=== PATIENT | female | born 1980 | race Two or more races ===

== ENCOUNTER 2019-05-21 20:28 | Emergency (ER) | payer SELFPAY ==
--- NOTE | 2019-05-21 21:01 | EDM.PDOC ---
ED HPI GENERAL MEDICAL PROBLEM - General Chief Complaint: Abdominal Pain Stated Complaint: ABDOMINAL PAIN Time Seen by Provider: 05/21/19 20:52 Source of Information: Reports: Patient History Limitations: Reports: No Limitations - History of Present Illness INITIAL COMMENTS - FREE TEXT/NARRATIVE: 39-year-old female with onset of vaginal discharge 3 weeks ago that has been fairly consistent. She also had some burning with urination at that time. The burning with urination has worsened with time and she has developed pain with urination as well. She also has pain along her left flank and left back and left lower abdomen that has developed over the past week. She rates the pain as a 5-6/10 at rest and is somewhat sharp and throbbing. The pain is a 10/10 when she urinates. She has had some nausea but no vomiting. She reports that she has had no sexual intercourse for at least 2 months. She has been eating and drinking normally. The pain is worse with palpation and with movement. She has noticed no blood in her urine. Her bowel movements have been normal. There are no other associated signs or symptoms. There are no other modifying factors. Onset: Other (3 weeks ago) Duration: Getting Worse Location: Reports: Abdomen, Pelvis Quality: Reports: Sharp, Stabbing, Throbbing Severity: Moderate (to an ear) Improves with: Reports: Rest Worsens with: Reports: Other (Palpation. Urination) Context: Reports: Other (As above. No inciting event.) Associated Symptoms: Reports: Nausea/Vomiting Treatments INFORMATION CONSULTANT: Reports: Other (see below) (Nothing) lower abd Pain Score (Numeric/FACES): 5 - Related Data Allergies Allergy/AdvReac Type Severity Reaction Status Date / Time No Known Allergies Allergy Verified 09/25/18 22:19 Home Meds: Home Meds SUMAtriptan Succinate [Imitrex] 100 mg PO ASDIRECTED PRN 05/21/19 [History] Sulfamethoxazole/Trimethoprim [Bactrim Ds Tablet] 1 each PO BID 10 Days #20 tablet 05/21/19 [Rx] Past Medical History Musculoskeletal History: Reports: Back Pain, Chronic, Other (See Below) Other Musculoskeletal History: Degenerative Disc Disease, fx L thumb-2012 Neurological History: Reports: Migraines Psychiatric History: Reports: Bipolar, PTSD - Infectious Disease History Infectious Disease History: Reports: Chicken Pox - Past Surgical History HEENT Surgical History: Reports: Oral Surgery, Tonsillectomy Female Surgical History: Reports: Tubal Ligation Social & Family History - Tobacco Use Smoking Status *Q: Current Every Day Smoker - Caffeine Use Caffeine Use: Reports: None - Alcohol Use Alcohol Use History: No - Recreational Drug Use Recreational Drug Use: Yes Drug Use in Last 12 Months: Yes Recreational Drug Type: Reports: Marijuana/Hashish - Sexual History Other Sexual History Comment: Not really sexually active. Last sexual intercourse was 2 months ago. 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 ED ROS GENERAL - Review of Systems Review Of Systems: See Below Constitutional: Reports: No Symptoms HEENT: Reports: No Symptoms Respiratory: Reports: No Symptoms Cardiovascular: Reports: No Symptoms Endocrine: Reports: No Symptoms GI/Abdominal: Reports: Abdominal Pain (Left flank and lower abdominal pain) : Reports: Discharge, Dysuria, Flank Pain, Pain (With urination). Denies: Hematuria Musculoskeletal: Reports: Back Pain (Left mid back pain) Skin: Reports: No Symptoms Neurological: Reports: No Symptoms Hematologic/Lymphatic: Reports: No Symptoms ED EXAM, GI/ABD - Physical Exam Exam: See Below Exam Limited By: No Limitations General Appearance: Alert, WD/WN, Mild Distress Eyes: Bilateral: Normal Appearance, EOMI Ears: Normal External Exam Nose: Normal Inspection, Normal Mucosa, No Blood Throat/Mouth: Normal Inspection, Normal Oropharynx, Normal Voice, No Airway Compromise Head: Atraumatic, Normocephalic Neck: Normal Inspection, Supple, Non-Tender, Full Range of Motion Respiratory/Chest: No Respiratory Distress, Lungs Clear, Normal Breath Sounds, No Accessory Muscle Use, Chest Non-Tender Cardiovascular: Normal Peripheral Pulses, Regular Rate, Rhythm, No JVD GI/Abdominal Exam: Normal Bowel Sounds, Soft, No Mass, Tender (Tender over left flank and left lower quadrant. No rebound. No masses.) Back Exam: Normal Inspection, CVA Tenderness (L) (Mild) Extremities: Normal Inspection, Normal Range of Motion, Non-Tender, Normal Capillary Refill, No Pedal Edema Neurological: Alert, Oriented, CN II-XII Intact, Normal Cognition, No Motor/ Sensory Deficits Skin Exam: Warm, Dry, Intact, Normal Color, No Rash Course - Vital Signs Last Recorded V/S: Last Vital Signs Temp 36.8 C 05/21/19 20:28 Pulse 102 H 05/21/19 20:28 Resp 18 05/21/19 20:28 BP 104/76 05/21/19 20:28 Pulse Ox 98 05/21/19 20:28 - Orders/Labs/Meds Orders: Active Orders 24 hr Category Date Time Status Abdomen Pelvis wo Cont [CT] Stat Exams 05/21/19 21:51 Taken CHLAMYDIA/GC AMPLIFICATION Urgent Lab 05/21/19 21:05 Received CULTURE URINE [RM] Stat Lab 05/21/19 20:54 Received Labs: Laboratory Tests 05/21/19 05/21/19 05/21/19 Range/Units 20:54 20:54 21:10 WBC 10.8 (4.5-12.0) X10-3/uL RBC 4.78 (3.23-5.20) x10(6)uL Hgb 14.5 (11.5-15.5) g/dL Hct 43.7 (30.0-51.3) % MCV 91.3 (80-96) fL MCH 30.4 (27.7-33.6) pg MCHC 33.3 (32.2-35.4) g/dL RDW 13.3 (11.5-15.5) % Plt Count 263 (125-369) X10(3)uL MPV 9.1 (7.4-10.4) fL Neut % (Auto) 69.8 (46-82) % Lymph % (Auto) 19.2 (13-37) % [place] % (Auto) 5.3 (4-12) % Eos % (Auto) 4 (1.0-5.0) % Baso % (Auto) 2 (0-2) % Neut # (Auto) 7.5 (1.6-8.3) # Lymph # (Auto) 2.1 (0.6-5.0) # [place] # (Auto) 0.6 (0.0-1.3) # Eos # (Auto) 0.4 (0.0-0.8) # Baso # (Auto) 0.2 (0.0-0.2) # Sodium (135-145) mmol/L Potassium (3.5-5.3) mmol/L Chloride (100-110) mmol/L Carbon Dioxide (21-32) mmol/L BUN (7-18) mg/dL Creatinine (0.55-1.02) mg/dL Est Cr Clr Drug Dosing mL/min Estimated GFR (MDRD) (>60) BUN/Creatinine Ratio (9-20) Glucose (80-116) mg/dL Calcium (8.6-10.2) mg/dL Total Bilirubin (0.1-1.3) mg/dL AST (5-25) IU/L ALT (12-36) U/L Alkaline Phosphatase (56-112) IU/L C-Reactive Protein (0.5-0.9) mg/dL Total Protein (6.0-8.0) g/dL Albumin (3.5-5.2) g/dL Globulin g/dL Albumin/Globulin Ratio Amylase (25-115) U/L Urine Color Yellow (YELLOW) Urine Appearance Cloudy (CLEAR) Urine pH 6.0 (5.0-6.5) Ur Specific [place] 1.020 (1.010-1.025) Urine Protein Negative (NEGATIVE) mg/dL Urine Glucose (UA) Normal (NORMAL) mg/dL Urine Ketones Negative (NEGATIVE) mg/dL Urine Occult Blood Negative (NEGATIVE) Urine Nitrite Negative (NEGATIVE) Urine Bilirubin Negative (NEGATIVE) Urine Urobilinogen 1 H (NEGATIVE) mg/dL Ur Leukocyte Esterase Large H (NEGATIVE) Urine RBC 0-5 (0-5) Urine WBC 10-20 H (0-5) Ur Squamous Epith Cells Few H (NS,R,O) Amorphous Sediment Moderate Urine Bacteria Moderate H (NS) Urine HCG, Qual Negative (NEGATIVE) 05/21/19 05/21/19 Range/Units 21:10 21:10 WBC (4.5-12.0) X10-3/uL RBC (3.23-5.20) x10(6)uL Hgb (11.5-15.5) g/dL Hct (30.0-51.3) % MCV (80-96) fL MCH (27.7-33.6) pg MCHC (32.2-35.4) g/dL RDW (11.5-15.5) % Plt Count (125-369) X10(3)uL MPV (7.4-10.4) fL Neut % (Auto) (46-82) % Lymph % (Auto) (13-37) % [place] % (Auto) (4-12) % Eos % (Auto) (1.0-5.0) % Baso % (Auto) (0-2) % Neut # (Auto) (1.6-8.3) # Lymph # (Auto) (0.6-5.0) # [place] # (Auto) (0.0-1.3) # Eos # (Auto) (0.0-0.8) # Baso # (Auto) (0.0-0.2) # Sodium 141 (135-145) mmol/L Potassium 4.0 (3.5-5.3) mmol/L Chloride 106 (100-110) mmol/L Carbon Dioxide 26 (21-32) mmol/L BUN 18 (7-18) mg/dL Creatinine 1.0 (0.55-1.02) mg/dL Est Cr Clr Drug Dosing 55.87 mL/min Estimated GFR (MDRD) > 60 (>60) BUN/Creatinine Ratio 18.0 (9-20) Glucose 83 (80-116) mg/dL Calcium 9.5 (8.6-10.2) mg/dL Total Bilirubin 0.4 (0.1-1.3) mg/dL AST 21 D (5-25) IU/L ALT 34 D (12-36) U/L Alkaline Phosphatase 120 H (56-112) IU/L C-Reactive Protein 0.4 L (0.5-0.9) mg/dL Total Protein 7.5 (6.0-8.0) g/dL Albumin 3.6 (3.5-5.2) g/dL Globulin 3.9 g/dL Albumin/Globulin Ratio 0.9 Amylase 83 (25-115) U/L Urine Color (YELLOW) Urine Appearance (CLEAR) Urine pH (5.0-6.5) Ur Specific [place] (1.010-1.025) Urine Protein (NEGATIVE) mg/dL Urine Glucose (UA) (NORMAL) mg/dL Urine Ketones (NEGATIVE) mg/dL Urine Occult Blood (NEGATIVE) Urine Nitrite (NEGATIVE) Urine Bilirubin (NEGATIVE) Urine Urobilinogen (NEGATIVE) mg/dL Ur Leukocyte Esterase (NEGATIVE) Urine RBC (0-5) Urine WBC (0-5) Ur Squamous Epith Cells (NS,R,O) Amorphous Sediment Urine Bacteria (NS) Urine HCG, Qual (NEGATIVE) Meds: Medications Discontinued Medications Generic Name Dose Route Start Last Admin Trade Name Onel PRN Reason Stop Dose Admin Azithromycin 1,000 mg 05/21/19 22:57 05/21/19 23:08 Zithromax PO 05/21/19 22:58 1,000 mg ONETIME ONE Administration Ceftriaxone Sodium 1 gm 05/21/19 22:57 05/21/19 23:08 Rocephin IM 05/21/19 22:58 1 gm ONETIME ONE Administration Metronidazole 2,000 mg 05/21/19 22:57 05/21/19 23:08 Metronidazole PO 05/21/19 22:58 2,000 mg NOW ONE Administration Ondansetron HCl 4 mg 05/21/19 22:57 05/21/19 23:08 Zofran Odt PO 05/21/19 22:58 4 mg ONETIME ONE Administration - Radiology Interpretation Free Text/Narrative:: CT scan of the abdomen and pelvis showed no acute or specific finding per the radiologist. She did have severe degenerative disks spondylolysis at L5-S1. - Re-Assessments/Exams Free Text/Narrative Re-Assessment/Exam: 05/21/19 22:59: Patient has remained vitally stable. The CT scan of her abdomen and pelvis showed no acute abnormality. Her wet prep was positive for Trichomonas and her urine did appear to have evidence of infection. She was sexually active 2 months ago and has had the symptoms for quite some time. I will treat the patient for STDs including Trichomonas. I will also place the patient on antibiotics for an urinary tract infection. She is to drink plenty of fluids. She should take Tylenol and ibuprofen as needed for pain. She will need to follow-up with her primary doctor Departure - Departure Time of Disposition: 23:10 Disposition: Home, Self-Care 01 Condition: Good Clinical Impression: Trichomonas vaginitis, STD (female), Left flank pain UTI (urinary tract infection) Qualifiers: Urinary tract infection type: site unspecified Hematuria presence: without hematuria Qualified Code(s): N39.0 - Urinary tract infection, site not specified - Discharge Information Prescriptions: Sulfamethoxazole/Trimethoprim [Bactrim Ds Tablet] 1 each PO BID 10 Days #20 tablet Instructions: Urinary Tract Infection, Adult, [id number], Flank Pain, Adult Referrals: PCP,None [Primary Care Provider] - Forms: ED Department Discharge, ED Return to Work/School Form Additional Instructions: You have a vaginal Trichomonas infection. He may also have other sexually transmitted diseases and you were treated for both the Trichomonas and for those other sexually transmitted diseases. You also appear to have a urinary tract infection and I am placing you on an antibiotic to cover this. (Bactrim DS ). The CT scan of your abdomen and pelvis showed no evidence of kidney stones or any other pathology. You should increase your fluid intake. Any sexual partners should be checked and treated. Follow-up with your primary doctor as needed. Back to the emergency department for high fever, unrelenting vomiting, abdominal pain or any other concerning sign or symptom. - My Orders Last 24 Hours: My Active Orders 05/21/19 20:54 CULTURE URINE [RM] Stat 05/21/19 21:05 CHLAMYDIA/GC AMPLIFICATION Urgent 05/21/19 21:51 Abdomen Pelvis wo Cont [CT] Stat - Assessment/Plan Last 24 Hours: My Active Orders 05/21/19 20:54 CULTURE URINE [RM] Stat 05/21/19 21:05 CHLAMYDIA/GC AMPLIFICATION Urgent 05/21/19 21:51 Abdomen Pelvis wo Cont [CT] Stat
[2019-05-21] MEDS ORDERED: cefTRIAXone 1 GM Vial IM ONE (22:57)
[2019-05-21] MEDS ORDERED: Ondansetron 4 MG Tab.DIS PO ONE (22:57)
[2019-05-21] MEDS ORDERED: Azithromycin 250 MG Tab PO ONE (22:57)
[2019-05-21] MEDS ORDERED: metroNIDAZOLE 250 MG Tab PO ONE (22:57)
[2019-05-25 02:07] LABS: CHLAMYDIA TRACHOMATIS, NAA Positive (Negative); NEISSERIA GONORRHOEAE, NAA Negative (Negative)
--- NOTE | 2019-05-31 08:39 | LETTER ---
May 28, 2019 Seema Navarro [address] [place] [id number] Dear Ms. Navarro: This letter is written to inform you that the test for Chlamydia came back positive. You were treated with medication for the Chlamydia at the time you were seen in the emergency department. You should need no further treatment for this. As we discussed, you should have any sexual partner checked and treated and you should inform your sexual partner that you had Chlamydia. You should follow up with your primary doctor as I recommended. I hope this letter finds you well. Respectfully yours,
== END 2019-05-21 23:21 | disposition home or self-care (01) ==
LOC: FB.ED 20:28 → MERGE 20:28 → FB.ED 23:21
DX: A59.01 Trichomonal vulvovaginitis (principal); N39.0 Urinary tract infection, site not specified; F17.200 Nicotine dependence, unspecified, uncomplicated; Z98.890 Other specified postprocedural states; Z98.51 Tubal ligation status
CPT/HCPCS: 36415; 74176; 80053; 81001; 81025; 82150; 85025; 86140; 87086; 87210; 87491; 87591; 96372; 99284; A9270; J0696

== ENCOUNTER 2019-11-14 02:48 | Emergency (ER) | payer SELFPAY ==
[2019-11-14] MEDS ORDERED: Ketorolac 60 MG/2 ML SDV IM ONE (02:59)
[2019-11-14] MEDS ORDERED: Acetaminophen 500 MG Tab PO ONE (02:59)
[2019-11-14] MEDS ORDERED: SUMAtriptan 6 MG/0.5 ML SDV SUBCUT ONE (03:30)
--- NOTE | 2019-11-14 03:44 | EDM.PDOC ---
ED HPI GENERAL MEDICAL PROBLEM - General Stated Complaint: ALTERED MENTAL STATUS Time Seen by Provider: 11/14/19 03:00 Source of Information: Reports: Patient History Limitations: Reports: No Limitations - History of Present Illness INITIAL COMMENTS - FREE TEXT/NARRATIVE: Patient presented to the ED because of headache over the bi frontal area05/18 with associated N/V and photophobia. She has a h/o migraine and didn't take any medicine. She got anxious when someone gave her a medicine which she took. 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 Musculoskeletal History: Reports: Back Pain, Chronic, Other (See Below) Other Musculoskeletal History: Degenerative Disc Disease, fx L thumb-2012 Neurological History: Reports: Migraines Psychiatric History: Reports: Bipolar, PTSD - Infectious Disease History Infectious Disease History: Reports: Chicken Pox - Past Surgical History HEENT Surgical History: Reports: Oral Surgery, Tonsillectomy Female Surgical History: Reports: Tubal Ligation Social & Family History - Family History Family Medical History: Noncontributory - Caffeine Use Caffeine Use: Reports: None - Sexual History Other Sexual History Comment: Not really sexually active. Last sexual intercourse was 2 months ago. 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) ED ROS GENERAL - Review of Systems Review Of Systems: See Below Constitutional: Reports: No Symptoms HEENT: Reports: No Symptoms Respiratory: Reports: No Symptoms Cardiovascular: Reports: No Symptoms Endocrine: Reports: No Symptoms GI/Abdominal: Reports: No Symptoms : Reports: No Symptoms Musculoskeletal: Reports: No Symptoms Skin: Reports: No Symptoms Neurological: Reports: Headache Psychiatric: Reports: Anxiety - Physical Exam Exam: See Below Exam Limited By: No Limitations General Appearance: Alert, No Apparent Distress Eye Exam: Bilateral Eye: PERRL Ears: Normal External Exam, Normal Canal, Hearing Grossly Normal Nose: Normal Inspection, Normal Mucosa Throat/Mouth: Normal Inspection, Normal Lips, Normal Teeth, Normal Gums Head Exam: Atraumatic, Normocephalic Neck: Normal Inspection, Supple, Non-Tender, Full Range of Motion Respiratory/Chest: No Respiratory Distress, Lungs Clear, Normal Breath Sounds, No Accessory Muscle Use, Chest Non-Tender Cardiovascular: Normal Peripheral Pulses, Regular Rate, Rhythm, No Edema, No Gallop, No JVD, No Murmur, No Rub GI/Abdominal: Normal Bowel Sounds, Soft, Non-Tender (Female) Exam: Normal External Exam Neuro Exam (Abbreviated): Alert, Oriented, CN II-XII Intact, Normal Cognition, Normal Gait, Normal Reflexes, No Motor/Sensory Deficits Back Exam: Normal Inspection Extremities: Normal Inspection Psychiatric: Normal Affect Skin Exam: Warm Course - Vital Signs Text/Narrative:: toradol 60 mg IM x1 tylenol 1000 mg po x1 imitrex 6 mg SC x1 - Orders/Labs/Meds Meds: Medications Discontinued Medications Generic Name Dose Route Start Last Admin Trade Name Onel PRN Reason Stop Dose Admin Acetaminophen 1,000 mg 11/14/19 02:59 11/14/19 03:05 Tylenol Extra Strength PO 11/14/19 03:00 1,000 mg ONETIME ONE Administration Ketorolac Tromethamine 60 mg 11/14/19 02:59 11/14/19 03:05 Toradol IM 11/14/19 03:00 60 mg ONETIME ONE Administration Sumatriptan Succinate 6 mg 11/14/19 03:30 11/14/19 03:37 Imitrex SUBCUT 11/14/19 03:31 6 mg ONETIME ONE Administration Departure - Departure Time of Disposition: 03:40 Disposition: Home, Self-Care 01 Condition: Good Clinical Impression: Headache - Discharge Information Instructions: Migraine Headache, [id number] Referrals: PCP,None [Primary Care Provider] - Forms: ED Department Discharge Additional Instructions: please read discharge instructions on migraine take ibuprofen 800 mg with tylenol 1000 every 8 hours as needed for you headache follow up as needed Sepsis Event Note - Focused Exam Date Exam was Performed: 11/14/19 Time Exam was Performed: 14:53
== END 2019-11-14 04:10 | disposition home or self-care (01) ==
LOC: FB.ED 02:48
DX: R51 Headache (principal); F17.200 Nicotine dependence, unspecified, uncomplicated
CPT/HCPCS: 96372; 99283; 99284; A9270; J1885; J3030

== ENCOUNTER 2020-06-12 16:39 | Emergency (ER) | payer SELFPAY ==
[2020-06-12] MEDS ORDERED: Cyclobenzaprine 10 MG Tab PO STA (16:58)
[2020-06-12] MEDS ORDERED: Ketorolac 60 MG/2 ML SDV IM STA (16:58)
[2020-06-12] MEDS ORDERED: Acetaminophen/HYDROcodone 325-5 MG Tab PO STA (16:58)
--- NOTE | 2020-06-12 17:25 | EDM.PDOC ---
ED HPI GENERAL MEDICAL PROBLEM - General Chief Complaint: Back Pain or Injury Stated Complaint: L LEG PAIN Time Seen by Provider: 06/12/20 16:40 Source of Information: Reports: Patient History Limitations: Reports: No Limitations - History of Present Illness INITIAL COMMENTS - FREE TEXT/NARRATIVE: Patient presented to the ED because of low back pain for several days now. The pain is sharp, 7/10, radiating torads the left buttock and thigh. She took OTC pain meds with relief. 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 Musculoskeletal History: Reports: Back Pain, Chronic, Other (See Below) Other Musculoskeletal History: Degenerative Disc Disease, fx L thumb-2012 Neurological History: Reports: Migraines Psychiatric History: Reports: Bipolar, PTSD - Infectious Disease History Infectious Disease History: Reports: Chicken Pox - Past Surgical History HEENT Surgical History: Reports: Oral Surgery, Tonsillectomy Female Surgical History: Reports: Tubal Ligation Social & Family History - Family History Family Medical History: Noncontributory - Tobacco Use Smoking Status *Q: Current Every Day Smoker Years of Tobacco use: 30 Packs/Tins Daily: 1 - Caffeine Use Caffeine Use: Reports: None - Sexual History Other Sexual History Comment: Not really sexually active. Last sexual intercourse was 2 months ago. 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) ED ROS GENERAL - Review of Systems Review Of Systems: See Below Constitutional: Reports: No Symptoms HEENT: Reports: No Symptoms Respiratory: Reports: No Symptoms Cardiovascular: Reports: No Symptoms Endocrine: Reports: No Symptoms GI/Abdominal: Reports: No Symptoms : Reports: No Symptoms Musculoskeletal: Reports: Back Pain Skin: Reports: No Symptoms Neurological: Reports: No Symptoms Psychiatric: Reports: No Symptoms ED EXAM,LOWER BACK PAIN/INJURY - Physical Exam Exam: See Below Exam Limited By: No Limitations General Appearance: Alert, No Apparent Distress Eye Exam: Bilateral Eye: PERRL Ears: Normal External Exam, Normal Canal, Hearing Grossly Normal Nose: Normal Inspection, Normal Mucosa Throat/Mouth: Normal Inspection, Normal Lips, Normal Teeth Head: Atraumatic, Normocephalic Neck: Normal Inspection, Supple, Non-Tender, Full Range of Motion Respiratory/Chest: No Respiratory Distress, Lungs Clear, Normal Breath Sounds Cardiovascular: Normal Peripheral Pulses, Regular Rate, Rhythm, No Edema, No Gallop Rectal (Female) Exam: Normal Exam Back Exam: Normal Inspection, Full Range of Motion Extremities: Normal Inspection, Normal Range of Motion, Non-Tender Neurological: Alert, Normal Mood/Affect, Normal Dorsiflexion, CN II-XII Intact Skin Exam: Warm Course - Vital Signs Text/Narrative:: Toradol 60 mg IM x1 [place] 5/325, 2 po x1 Flexeril 10 mg po x1 Last Recorded V/S: Last Vital Signs Temp 36.5 C 06/12/20 16:39 Pulse 118 H 06/12/20 16:39 Resp 17 06/12/20 16:39 BP 145/71 H 06/12/20 16:39 Pulse Ox 99 06/12/20 16:39 - Orders/Labs/Meds Labs: Laboratory Tests 06/12/20 Range/Units 16:53 Urine Color Yellow (YELLOW) Urine Appearance Cloudy (CLEAR) Urine pH 5.0 (5.0-6.5) Ur Specific [place] 1.020 (1.010-1.025) Urine Protein 30 H (NEGATIVE) mg/dL Urine Glucose (UA) Normal (NORMAL) mg/dL Urine Ketones Negative (NEGATIVE) mg/dL Urine Occult Blood Negative (NEGATIVE) Urine Nitrite Negative (NEGATIVE) Urine Bilirubin Negative (NEGATIVE) Urine Urobilinogen Normal (NEGATIVE) mg/dL Ur Leukocyte Esterase Negative (NEGATIVE) Urine RBC 0-5 (0-5) Urine WBC 0-5 (0-5) Ur Squamous Epith Cells Many H (NS,R,O) Urine Bacteria Many H (NS) Urine Mucus Moderate H (NS) Meds: Medications Discontinued Medications Generic Name Dose Route Start Last Admin Trade Name Freq PRN Reason Stop Dose Admin Hydrocodone Bitart/Acetaminophen 2 tab 06/12/20 16:58 06/12/20 17:04 [place] 325-5 Mg PO 06/12/20 16:59 2 tab NOW STA Administration Cyclobenzaprine HCl 10 mg 06/12/20 16:58 06/12/20 17:04 Flexeril PO 06/12/20 16:59 10 mg NOW STA Administration Ketorolac Tromethamine 60 mg 06/12/20 16:58 06/12/20 17:04 Toradol IM 06/12/20 16:59 60 mg NOW STA Administration Departure - Departure Time of Disposition: 17:25 Disposition: Home, Self-Care 01 Condition: Good Clinical Impression: DDD (degenerative disc disease), Sciatica - Discharge Information Prescriptions: Cyclobenzaprine [Flexeril] 10 mg PO TID PRN #30 tab PRN Reason: Spasms Instructions: Radicular Pain, Sciatica, [id number], Chronic Back Pain, [id number] Referrals: PCP,None [Primary Care Provider] - Forms: ED Department Discharge Additional Instructions: please read discharge instruction on low back pain and sciatica Take flexeril 10 mg with ibuprofen 800 mg and tylenol 1000 every 8 hours as needed for muscle spasm and pain. Follow up if symptoms persist Sepsis Event Note (ED) - Evaluation Sepsis Screening Result: No Definite Risk - Focused Exam Vital Signs: Vital Signs Temp Pulse Resp BP Pulse Ox 06/12/20 16:39 36.5 C 118 H 17 145/71 H 99
== END 2020-06-12 17:46 | disposition home or self-care (01) ==
LOC: FB.ED 16:39
DX: M54.42 Lumbago with sciatica, left side (principal); M51.36 Other intervertebral disc degeneration, lumbar region; F17.210 Nicotine dependence, cigarettes, uncomplicated
CPT/HCPCS: 81001; 96372; 99283; A9270; J1885

== ENCOUNTER 2021-04-09 21:38 | Emergency (ER) | payer MEDICAID ==
[2021-04-09] MEDS ORDERED: Cyclobenzaprine 10 MG Tab PO STA (22:02)
[2021-04-09] MEDS ORDERED: Ketorolac 30 MG/ML SDV IM STA (22:02)
[2021-04-09] MEDS ORDERED: Acetaminophen/HYDROcodone 325-5 MG Tab PO STA (22:02)
--- NOTE | 2021-04-09 22:08 | EDM.PDOC ---
ED HPI GENERAL MEDICAL PROBLEM - General Chief Complaint: Back Pain or Injury Stated Complaint: LEFT LEG PAIN Time Seen by Provider: 04/09/21 21:45 Source of Information: Reports: Patient History Limitations: Reports: No Limitations - History of Present Illness INITIAL COMMENTS - FREE TEXT/NARRATIVE: Patient presented to the ED because of worsening low back pain. the pain is sh romeo,8/10, radiating to the left buttock and thigh. She is taking miloxicam without any significant relief. there is no lost of bowel or bladder control. She has an upcoming appointment to see the personal computer specialist. Treatments LICENSED WEIGHER: Reports: Acetaminophen, NSAIDS Lower back Pain Score (Numeric/FACES): 8 - Related Data Allergies Allergy/AdvReac Type Severity Reaction Status Date / Time No Known Allergies Allergy Verified 04/09/21 21:47 Home Meds: Home Meds Amitriptyline [Elavil] 10 mg PO BEDTIME 04/09/21 [History] Cyclobenzaprine [Flexeril] 10 mg PO Q8H PRN #30 tab 04/09/21 [Rx] Ibuprofen 800 mg PO Q8H PRN #30 tablet 04/09/21 [Rx] Meloxicam 7.5 mg PO BID 04/09/21 [History] atorvaSTATin Calcium [Lipitor] 20 mg BEDTIME 04/09/21 [History] lisinopriL [Lisinopril] 10 mg PO DAILY 04/09/21 [History] Past Medical History HEENT History: Reports: None Respiratory History: Reports: Other (See Below) Other Respiratory History: acute bronchitis, is a smoker SHIRT CLEANER History: Reports: Other (See Below) Other SHIRT CLEANER History: tubal ligation-2002 Musculoskeletal History: Reports: Back Pain, Chronic, Other (See Below) Other Musculoskeletal History: Degenerative Disc Disease, fx L thumb-2012 Neurological History: Reports: Migraines Psychiatric History: Reports: Bipolar, PTSD - Infectious Disease History Infectious Disease History: Reports: Chicken Pox - Past Surgical History HEENT Surgical History: Reports: Oral Surgery, Tonsillectomy Female Surgical History: Reports: Tubal Ligation Social & Family History - Family History Family Medical History: No Pertinent Family History - Caffeine Use Caffeine Use: Reports: None - Sexual History Other Sexual History Comment: Not really sexually active. Last sexual intercourse was 2 months ago. 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) ED ROS GENERAL - Review of Systems Review Of Systems: See Below Constitutional: Reports: No Symptoms HEENT: Reports: No Symptoms Respiratory: Reports: No Symptoms Cardiovascular: Reports: No Symptoms Endocrine: Reports: No Symptoms GI/Abdominal: Reports: No Symptoms : Reports: No Symptoms Musculoskeletal: Reports: Back Pain Skin: Reports: No Symptoms Neurological: Reports: No Symptoms Psychiatric: Reports: No Symptoms ED EXAM,LOWER BACK PAIN/INJURY - Physical Exam Exam: See Below Exam Limited By: Uncooperative General Appearance: No Apparent Distress Ears: Normal External Exam, Normal Canal, Hearing Grossly Normal Nose: Normal Inspection, Normal Mucosa, No Blood Throat/Mouth: Normal Inspection, Normal Lips, Normal Teeth Head: Atraumatic, Normocephalic Neck: Normal Inspection, Supple, Non-Tender, Full Range of Motion Respiratory/Chest: No Respiratory Distress, Lungs Clear, Normal Breath Sounds Cardiovascular: Normal Peripheral Pulses, Regular Rate, Rhythm, No Edema, No Gallop, No JVD, No Murmur GI/Abdominal: Normal Bowel Sounds, Soft Back Exam: Muscle Spasm, Vertebral Tenderness Course - Vital Signs Text/Narrative:: Toradol 60 mg IM x1 Flexeril 10 mg PO x1 [place] 5/325, 2 PO x1 Last Recorded V/S: Last Vital Signs Temp 36.8 C 04/09/21 21:43 Pulse 107 H 04/09/21 21:43 Resp 18 04/09/21 21:43 BP 146/91 H 04/09/21 21:43 Pulse Ox 100 04/09/21 21:43 - Orders/Labs/Meds Meds: Medications Discontinued Medications Generic Name Dose Route Start Last Admin Trade Name Onel PRN Reason Stop Dose Admin Hydrocodone Bitart/Acetaminophen 2 tab 04/09/21 22:02 04/09/21 22:19 Acetaminophen/Hydrocodone 325-5 Mg Tab PO 04/09/21 22:03 2 tab NOW STA Administration Cyclobenzaprine HCl 10 mg 04/09/21 22:02 04/09/21 22:18 Cyclobenzaprine 10 Mg Tab PO 04/09/21 22:03 10 mg NOW STA Administration Ketorolac Tromethamine 60 mg 04/09/21 22:02 04/09/21 22:18 Ketorolac 30 Mg/Ml Sdv IM 04/09/21 22:03 60 mg NOW STA Administration Departure - Departure Time of Disposition: 22:00 Disposition: Home, Self-Care 01 Condition: Good Clinical Impression: DDD (degenerative disc disease), DJD (degenerative joint disease) - Discharge Information Prescriptions: Cyclobenzaprine [Flexeril] 10 mg PO Q8H PRN #30 tab PRN Reason: Spasms Ibuprofen 800 mg PO Q8H PRN #30 tablet PRN Reason: Pain Instructions: Osteoarthritis, Chronic Back Pain, [id number] Forms: ED Department Discharge Additional Instructions: Please read discharge instructions on DDD and osteoarthritis Take the following medications at same time for better pain relief Ibuprofen 800 mg and tylenol 1000(for pain) and Flexeril 10 mg(muscle spasm) every 8 hours as needed Do not take both ibuprofen and miloxicam together Follow up with your doctor this week Sepsis Event Note (ED) - Evaluation Sepsis Screening Result: No Definite Risk - Focused Exam Vital Signs: Vital Signs Temp Pulse Resp BP Pulse Ox 04/09/21 21:43 36.8 C 107 H 18 146/91 H 100
== END 2021-04-09 22:30 | disposition home or self-care (01) ==
LOC: FB.ED 21:38
DX: M51.36 Other intervertebral disc degeneration, lumbar region (principal); M47.816 Spondylosis without myelopathy or radiculopathy, lumbar region; F17.200 Nicotine dependence, unspecified, uncomplicated; Z79.899 Other long term (current) drug therapy
CPT/HCPCS: 96372; 99283; A9270-GY; J1885

== ENCOUNTER 2021-05-12 23:53 | Emergency (ER) | payer MEDICAID ==
[2021-05-13] MEDS: Ketorolac 30 MG/ML SDV IM ONE (00:40)
--- NOTE | 2021-05-13 00:46 | EDM.PDOC ---
ED HPI GENERAL MEDICAL PROBLEM - General Chief Complaint: Back Pain or Injury Stated Complaint: PULLED MUSCLE LEFT SIDE Time Seen by Provider: 05/13/21 00:30 Source of Information: Reports: Patient History Limitations: Reports: No Limitations - History of Present Illness INITIAL COMMENTS - FREE TEXT/NARRATIVE: States she was lifting an AC unit yesterday Did not notice any pain until today Pain started gradually under her left scapula, area seems to be swollen pain has progressively gotten worse , with movement and with attempts to lift the left arm up no numbness or tingling in the arms noted taking a deep breath also makes the pain worse Onset: Today Onset Date: 05/13/21 Duration: Getting Worse Location: Reports: Back (lower pole and area below the left scapula) Quality: Reports: Ache, Dull Severity: Moderate Improves with: Reports: Cold Therapy Worsens with: Reports: Movement Context: Reports: Activity Associated Symptoms: Reports: No Other Symptoms - Related Data Allergies Allergy/AdvReac Type Severity Reaction Status Date / Time No Known Allergies Allergy Verified 04/09/21 21:47 Home Meds: Home Meds Amitriptyline [Elavil] 10 mg PO BEDTIME 04/09/21 [History] Cyclobenzaprine [Flexeril] 10 mg PO Q8H PRN #30 tab 04/09/21 [Rx] Ibuprofen 800 mg PO Q8H PRN #30 tablet 04/09/21 [Rx] Meloxicam 7.5 mg PO BID 04/09/21 [History] atorvaSTATin Calcium [Lipitor] 20 mg PO BEDTIME 04/09/21 [History] lisinopriL [Lisinopril] 10 mg PO DAILY 04/09/21 [History] Cyclobenzaprine [Flexeril] 10 mg PO TID PRN #30 tab 05/13/21 [Rx] Lidocaine 4% [Aspercreme 4%] 1 each TOP Q12HR #30 patch 05/13/21 [Rx] Past Medical History HEENT History: Reports: None Cardiovascular History: Reports: High Cholesterol, Hypertension Respiratory History: Reports: Bronchitis, Recurrent, Other (See Below) Other Respiratory History: acute bronchitis, is a smoker Genitourinary History: Reports: None FISH CHECKER History: Reports: , Other (See Below) Other FISH CHECKER History: tubal ligation-2003, Musculoskeletal History: Reports: Back Pain, Chronic, Fracture, Other (See Below) Other Musculoskeletal History: Degenerative Disc Disease, fx L thumb-2013, Neurological History: Reports: Concussion, Migraines Psychiatric History: Reports: Anxiety, Bipolar, Depression, PTSD, Other (See Below) Other Psychiatric History: borderline personality disorder - Infectious Disease History Infectious Disease History: Reports: Chicken Pox - Past Surgical History HEENT Surgical History: Reports: Oral Surgery, Tonsillectomy Female Surgical History: Reports: Tubal Ligation Social & Family History - Family History Family Medical History: No Pertinent Family History - Caffeine Use Caffeine Use: Reports: Coffee, Energy Drinks, Soda - Sexual History Other Sexual History Comment: Not really sexually active. Last sexual intercourse was 2 months ago. 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 ED EXAM, UPPER BACK/NECK PAIN - Physical Exam Exam: See Below Exam Limited By: No Limitations General Appearance: Alert, WD/WN, No Apparent Distress Eye Exam: Bilateral Eye: EOMI Ears Exam: Normal External Exam Throat/Mouth Exam: Normal Oropharynx Head Exam: Atraumatic, Normocephalic Neck Exam: Non-Tender, Full Range of Motion Nexus Criteria: No: Posterior, Midline Cervical Tenderness Cardiovascular/Respiratory: Regular Rate, Rhythm GI/Abdominal: Soft, Non-Tender Back Exam: Decreased Range of Motion, Muscle Spasm, Paraspinal Tenderness, Other (let lateral rib pains noted in the mid axillary line) Extremities: Normal Inspection Neurologic: No Motor/Sensory Deficits, Alert, Normal Mood/Affect, Oriented x 3 Psychiatric: Normal Affect Skin Exam: Normal Color, Warm/Dry Lymphatic: No Adenopathy Course - Orders/Labs/Meds Orders: Active Orders 24 hr Category Date Time Status Ribs 2V w Chest Lt [CR] Stat Exams 05/13/21 00:35 Taken Meds: Medications Discontinued Medications Generic Name Dose Route Start Last Admin Trade Name Freq PRN Reason Stop Dose Admin Ketorolac Tromethamine 60 mg 05/13/21 00:36 05/13/21 00:40 Ketorolac 30 Mg/Ml Sdv IM 05/13/21 00:37 60 mg ONETIME ONE Administration Lidocaine 1 each 05/13/21 00:48 05/13/21 01:06 Lidocaine 4% 1 Each Patch TOP 05/13/21 00:49 1 each NOW STA Administration - Re-Assessments/Exams Free Text/Narrative Re-Assessment/Exam: 05/13/21 00:58 Cold compress to the affected area pt given Toradol injection had Xray of the ribs done given lidocaine patch topically Departure - Departure Time of Disposition: 02:30 Disposition: Home, Self-Care 01 Condition: Fair Clinical Impression: Contusion of rib on left side, Spasm of thoracic back muscle, Acute upper back pain - Discharge Information *PRESCRIPTION DRUG MONITORING PROGRAM REVIEWED*: Not Applicable *COPY OF PRESCRIPTION DRUG MONITORING REPORT IN PATIENT GREGORY: Not Applicable Instructions: Muscle Cramps and Spasms, [id number], Muscle Strain, [id number], Rib Contusion Forms: ED Department Discharge Additional Instructions: 1) Continue with cold compress to the affected area of the back 3 times daily for at lest 48 hrs' 2) Upper back exercises 2 times daily 3) Follow up with your PCP if symptoms do not improve as expected - My Orders Last 24 Hours: My Active Orders 05/13/21 00:35 Ribs 2V w Chest Lt [CR] Stat - Assessment/Plan Last 24 Hours: My Active Orders 05/13/21 00:35 Ribs 2V w Chest Lt [CR] Stat
[2021-05-13] MEDS: Lidocaine 4% 1 each Patch TOP STA (01:06)
== END 2021-05-13 02:38 | disposition home or self-care (01) ==
LOC: FB.ED 23:53
DX: S20.212A Contusion of left front wall of thorax, initial encounter (principal); M62.830 Muscle spasm of back; E78.00 Pure hypercholesterolemia, unspecified; I10 Essential (primary) hypertension; Z79.899 Other long term (current) drug therapy; X50.0XXA Overexertion from strenuous movement or load, initial encounter
CPT/HCPCS: 71101-LT; 96372; 99283-25; J1885

== ENCOUNTER 2021-08-04 10:19 | Emergency (ER) | payer MEDICAID ==
--- NOTE | 2021-08-04 10:59 | EDM.PDOC ---
ED HPI GENERAL MEDICAL PROBLEM - General Chief Complaint: General Stated Complaint: leakage from incision Time Seen by Provider: 08/04/21 10:35 Source of Information: Reports: Patient, Family History Limitations: Reports: No Limitations - History of Present Illness INITIAL COMMENTS - FREE TEXT/NARRATIVE: c/o drainage from surgery site pt here with granddaughter, pt state she had a laminectomy 5-6d ago at [facility], has been following instructions, feeling well, has more feeling in her LE, using a cane, not bending as instructed drsg was dry for past 6d, today it has been getting wet although there is no discomfort - Related Data Allergies Allergy/AdvReac Type Severity Reaction Status Date / Time No Known Allergies Allergy Verified 05/13/21 06:01 Home Meds: Home Meds Amitriptyline [Elavil] 10 mg PO BEDTIME 04/09/21 [History] Cyclobenzaprine [Flexeril] 10 mg PO Q8H PRN #30 tab 04/09/21 [Rx] Ibuprofen 800 mg PO Q8H PRN #30 tablet 04/09/21 [Rx] Meloxicam 7.5 mg PO BID 04/09/21 [History] atorvaSTATin Calcium [Lipitor] 20 mg PO BEDTIME 04/09/21 [History] lisinopriL [Lisinopril] 10 mg PO DAILY 04/09/21 [History] Cyclobenzaprine [Flexeril] 10 mg PO TID PRN #30 tab 05/13/21 [Rx] Lidocaine 4% [Aspercreme 4%] 1 each TOP Q12HR #30 patch 05/13/21 [Rx] Past Medical History HEENT History: Reports: None Cardiovascular History: Reports: High Cholesterol, Hypertension Respiratory History: Reports: Bronchitis, Recurrent, Other (See Below) Other Respiratory History: acute bronchitis, is a smoker Genitourinary History: Reports: None HOUSE SITTER History: Reports: , Other (See Below) Other HOUSE SITTER History: tubal ligation-2003, Musculoskeletal History: Reports: Back Pain, Chronic, Fracture, Other (See Below) Other Musculoskeletal History: Degenerative Disc Disease, fx L thumb-2013, Neurological History: Reports: Concussion, Migraines Psychiatric History: Reports: Anxiety, Bipolar, Depression, PTSD, Other (See Below) Other Psychiatric History: borderline personality disorder - Infectious Disease History Infectious Disease History: Reports: Chicken Pox - Past Surgical History HEENT Surgical History: Reports: Oral Surgery, Tonsillectomy Female Surgical History: Reports: Tubal Ligation Musculoskeletal Surgical History: Reports: None Social & Family History - Family History Family Medical History: No Pertinent Family History - Tobacco Use Tobacco Use Status *Q: Current Every Day Tobacco User Years of Tobacco use: 37 Packs/Tins Daily: 1 - Caffeine Use Caffeine Use: Reports: Coffee, Soda Caffeine Use Comment: 1 cup/day - Recreational Drug Use Recreational Drug Use: Yes Recreational Drug Type: Reports: Marijuana/Hashish Recreational Drug Use Frequency: Daily - Sexual History Other Sexual History Comment: Not really sexually active. Last sexual intercourse was 2 months ago. 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) ED ROS GENERAL - Review of Systems Review Of Systems: See Below Constitutional: Reports: No Symptoms HEENT: Reports: No Symptoms Respiratory: Reports: No Symptoms Cardiovascular: Reports: No Symptoms Endocrine: Reports: No Symptoms GI/Abdominal: Reports: No Symptoms : Reports: No Symptoms Musculoskeletal: Reports: No Symptoms Skin: Reports: Wound Neurological: Reports: No Symptoms Psychiatric: Reports: No Symptoms Hematologic/Lymphatic: Reports: No Symptoms Immunologic: Reports: No Symptoms ED EXAM, GENERAL - Physical Exam Exam: See Below Free Text/Narrative:: additional fluid of 3-4 ml was gently expressed from an underlying area of 5 x 4 cm until additional fluid could not be obtained Exam Limited By: No Limitations General Appearance: Alert, WD/WN, No Apparent Distress Nose: Normal Inspection Head: Atraumatic Neck: Normal Inspection Respiratory/Chest: No Respiratory Distress Cardiovascular: Regular Rate, Rhythm GI/Abdominal: Soft Back Exam: Normal Inspection, Full Range of Motion Extremities: No Pedal Edema Neurological: Alert, Oriented, CN II-XII Intact, Normal Cognition, No Motor/Sensory Deficits Psychiatric: Normal Affect, Normal Mood Skin Exam: Other (midline incision of ~3 cm over l-spine shows normal healing, minimal ecchymosis out 2-3 mm, no red/warm/swell, there is ~4 mm of dehescience that drains slight blood tinged clear fluid) Lymphatic: No Adenopathy Course - Vital Signs Last Recorded V/S: Last Vital Signs Temp 36.6 C 08/04/21 10:20 Pulse 91 08/04/21 10:20 Resp 18 08/04/21 10:20 BP 128/77 08/04/21 10:20 Pulse Ox 98 08/04/21 10:20 - Re-Assessments/Exams Free Text/Narrative Re-Assessment/Exam: 08/04/21 11:05 typical seroma without infection, no clinical evidence of CSF Departure - Departure Time of Disposition: 10:52 Disposition: Home, Self-Care 01 Condition: Good Clinical Impression: Postoperative seroma - Discharge Information *PRESCRIPTION DRUG MONITORING PROGRAM REVIEWED*: Not Applicable *COPY OF PRESCRIPTION DRUG MONITORING REPORT IN PATIENT GREGORY: Not Applicable Instructions: Seroma Referrals: Mart Ceron, [Primary Care Provider] - Additional Instructions: The incision appears to be healing well. Most of the fluid that pooled under the skin has drained, although some continue d drainage would be expected. Keep incision covered with a dry dressing. Change dressing several times a day. If you have additional symptoms (pain, red, warm, warm, discolored fluid, fever, headache), call or return to Emergency Department. Continue to follow the surgeon's postoperative instructions. Sepsis Event Note (ED) - Evaluation Sepsis Screening Result: No Definite Risk - Focused Exam Vital Signs: Vital Signs Temp Pulse Resp BP Pulse Ox 08/04/21 10:20 36.6 C 91 18 128/77 98
== END 2021-08-04 11:04 | disposition home or self-care (01) ==
LOC: FB.ED 10:19
DX: H95.5 Postprocedural hematoma and seroma of ear and mastoid process following a procedure (principal); E78.00 Pure hypercholesterolemia, unspecified; I10 Essential (primary) hypertension; F17.210 Nicotine dependence, cigarettes, uncomplicated; Z79.899 Other long term (current) drug therapy
CPT/HCPCS: 99283

== ENCOUNTER 2021-09-03 22:16 | Emergency (ER) | payer MEDICAID ==
[2021-09-03] MEDS ORDERED: Sodium Chloride 0.9% 10 ML Syringe FLUSH PRN (22:44)
[2021-09-03] MEDS ORDERED: Ondansetron 4 MG/2 ML SDV IVPUSH STA (22:44)
[2021-09-03] MEDS ORDERED: Ketorolac 30 MG/ML SDV IVPUSH STA (22:44)
--- NOTE | 2021-09-03 22:44 | EDM.PDOC ---
ED HPI GENERAL MEDICAL PROBLEM - General Chief Complaint: Headache Stated Complaint: WEEK LONG HEADACHE Time Seen by Provider: 09/03/21 22:30 Source of Information: Reports: Patient History Limitations: Reports: No Limitations - History of Present Illness INITIAL COMMENTS - FREE TEXT/NARRATIVE: Patient presented to the ED because of headache which started 7 days ago. It's throbbing over the frontal and temporal area. She also have N/V X 3 today with associated photophobia. She took OTC tylenol without any relief. Headache Pain Score (Numeric/FACES): 9 - Related Data Allergies Allergy/AdvReac Type Severity Reaction Status Date / Time No Known Allergies Allergy Verified 05/13/21 06:01 Home Meds: Home Meds Amitriptyline [Elavil] 10 mg PO BEDTIME 04/09/21 [History] Ibuprofen 800 mg PO Q8H PRN #30 tablet 04/09/21 [Rx] Meloxicam 7.5 mg PO BID 04/09/21 [History] atorvaSTATin Calcium [Lipitor] 20 mg PO BEDTIME 04/09/21 [History] lisinopriL [Lisinopril] 10 mg PO DAILY 04/09/21 [History] Ketorolac [Toradol] 10 mg PO Q8H PRN #15 tab 09/03/21 [Rx] Ondansetron [Zofran ODT] 4 mg PO Q4H PRN #5 tab.dis 09/03/21 [Rx] Past Medical History HEENT History: Reports: None Cardiovascular History: Reports: High Cholesterol, Hypertension Respiratory History: Reports: Bronchitis, Recurrent, Other (See Below) Other Respiratory History: acute bronchitis, is a smoker Genitourinary History: Reports: None 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: , Other (See Below) Other HEEL NAILING MACHINE OPERATOR History: tubal ligation-2002, Musculoskeletal History: Reports: Back Pain, Chronic, Fracture, Other (See Below) Other Musculoskeletal History: Degenerative Disc Disease, fx L thumb-2012, Neurological History: Reports: Concussion, Migraines Psychiatric History: Reports: Anxiety, Bipolar, Depression, PTSD, Other (See Below) Other Psychiatric History: borderline personality disorder - Infectious Disease History Infectious Disease History: Reports: Chicken Pox - Past Surgical History HEENT Surgical History: Reports: Oral Surgery, Tonsillectomy Female Surgical History: Reports: Tubal Ligation Musculoskeletal Surgical History: Reports: None Social & Family History - Family History Family Medical History: No Pertinent Family History - Tobacco Use Tobacco Use Status *Q: Current Every Day Tobacco User Years of Tobacco use: 30 Packs/Tins Daily: 1 - Caffeine Use Caffeine Use: Reports: Coffee, Energy Drinks Caffeine Use Comment: 1 cup/day - Recreational Drug Use Recreational Drug Use: Yes Drug Use in Last 12 Months: Yes Recreational Drug Type: Reports: Marijuana/Hashish Recreational Drug Use Frequency: Weekly - Sexual History Other Sexual History Comment: Not really sexually active. Last sexual intercourse was 2 months ago. 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) ED ROS GENERAL - Review of Systems Review Of Systems: See Below Constitutional: Reports: No Symptoms HEENT: Reports: No Symptoms Respiratory: Reports: No Symptoms Cardiovascular: Reports: No Symptoms Endocrine: Reports: No Symptoms GI/Abdominal: Reports: Nausea : Reports: No Symptoms Musculoskeletal: Reports: No Symptoms Skin: Reports: No Symptoms Neurological: Reports: No Symptoms Psychiatric: Reports: No Symptoms ED EXAM, NEURO - Physical Exam Exam: See Below Exam Limited By: No Limitations General Appearance: Alert, No Apparent Distress Ears: Normal External Exam, Normal Canal Nose: Normal Inspection, Normal Mucosa, No Blood Throat/Mouth: Normal Inspection, Normal Lips, Normal Teeth Head Exam: Atraumatic, Normocephalic Neck: Normal Inspection, Supple, Non-Tender, Full Range of Motion Respiratory/Chest: No Respiratory Distress, Lungs Clear, Normal Breath Sounds, No Accessory Muscle Use, Chest Non-Tender Cardiovascular: Normal Peripheral Pulses, Regular Rate, Rhythm, No Edema, No Gallop, No JVD, No Murmur, No Rub GI/Abdominal: Normal Bowel Sounds, Soft, Non-Tender, No Organomegaly, No Distention, No Abnormal Bruit, No Mass Neurological: Alert, Normal Mood/Affect, Normal Dorsiflexion, CN II-XII Intact Course - Vital Signs Text/Narrative:: Lab result was reviewed and discussed with the patient NS 1 L bolus Zofran 4 mg IV x1 Toradol 30 mg IV x1 [place] 5mg, 2 PO x1 Last Recorded V/S: Last Vital Signs Temp 35.7 C L 09/03/21 22:24 Pulse 97 09/03/21 22:24 Resp 16 09/03/21 22:24 BP 141/73 H 09/03/21 22:24 Pulse Ox 96 09/03/21 22:24 - Orders/Labs/Meds Orders: Active Orders 24 hr Category Date Time Status Acetaminophen/HYDROcodone [[place] 325-5 MG] Med 09/03/21 23:20 Stat 2 tab PO NOW STA Sodium Chloride 0.9% [Normal Saline] 1,000 ml Med 09/03/21 22:45 Active IV ASDIRECTED Sodium Chloride 0.9% [Saline Flush] Med 09/03/21 22:44 Active 10 ml FLUSH ASDIRECTED PRN Saline Lock Insert [OM.PC] Routine Oth 09/03/21 22:44 Ordered Medication Orders Sodium Chloride (Normal Saline) 1,000 mls @ 999 mls/hr IV ASDIRECTED TREY Last Admin: 09/03/21 22:50 Dose: 999 mls/hr Documented by: CHRISTINE Sodium Chloride (Sodium Chloride 0.9% 10 Ml Syringe) 10 ml FLUSH ASDIRECTED PRN PRN Reason: Keep Vein Open Last Admin: 09/03/21 22:50 Dose: 10 ml Documented by: CHRISTINE Labs: Laboratory Tests 09/03/21 09/03/21 Range/Units 23:05 23:05 WBC 5.4 (3.0-10.3) x10-3/uL RBC 4.32 (3.60-5.20) x10(6)uL Hgb 14.1 (11.4-15.5) g/dL Hct 42.6 (34.2-48.2) % MCV 98.6 (76.7-100.5) fL MCH 32.6 (23.9-33.9) pg MCHC 33.0 (31.9-34.8) g/dL RDW 13.3 (12.3-16.5) % Plt Count 256 (151-488) x10(3)uL MPV 8.2 (7.1-12.4) fL Neut % (Auto) 44.8 (30.8-76.2) % Lymph % (Auto) 44.0 (18.4-52.1) % Anderson % (Auto) 7.6 (4.4-15.7) % Eos % (Auto) 2.8 (0.6-8.1) % Baso % (Auto) 0.8 (0.2-1.5) % Neut # (Auto) 2.4 (1.5-6.3) x10-3/uL Lymph # (Auto) 2.4 (1.0-4.4) x10-3/uL Anderson # (Auto) 0.4 (0.3-1.0) x10-3/uL Eos # (Auto) 0.2 (0.0-0.8) x10-3/uL Baso # (Auto) 0.0 (0.0-0.1) x10-3/uL Sodium 140 (135-145) mmol/L Potassium 4.3 (3.5-5.3) mmol/L Chloride 103 (100-110) mmol/L Carbon Dioxide 33 H (21-32) mmol/L BUN 16 (7-18) mg/dL Creatinine 0.9 (0.55-1.02) mg/dL Est Cr Clr Drug Dosing 60.82 mL/min Estimated GFR (MDRD) > 60 (>60) BUN/Creatinine Ratio 17.8 (9-20) Glucose 102 (80-116) mg/dL Calcium 8.6 (8.6-10.2) mg/dL Meds: Medications Generic Name Dose Route Start Last Admin Trade Name Freq PRN Reason Stop Dose Admin Sodium Chloride 1,000 mls @ 999 mls/hr 09/03/21 22:45 09/03/21 22:50 Normal Saline IV 999 mls/hr ASDIRECTED TREY Administration Sodium Chloride 10 ml 09/03/21 22:44 09/03/21 22:50 Sodium Chloride 0.9% 10 Ml Syringe FLUSH 10 ml ASDIRECTED PRN Administration Keep Vein Open Discontinued Medications Generic Name Dose Route Start Last Admin Trade Name Freq PRN Reason Stop Dose Admin Ketorolac Tromethamine 30 mg 09/03/21 22:44 09/03/21 22:50 Ketorolac 30 Mg/Ml Sdv IVPUSH 09/03/21 22:45 30 mg NOW STA Administration Ondansetron HCl 4 mg 09/03/21 22:44 09/03/21 22:50 Ondansetron 4 Mg/2 Ml Sdv IVPUSH 09/03/21 22:45 4 mg NOW STA Administration Departure - Departure Time of Disposition: 23:45 Disposition: Home, Self-Care 01 Condition: Good Clinical Impression: Migraine - Discharge Information Prescriptions: Ketorolac [Toradol] 10 mg PO Q8H PRN #15 tab PRN Reason: Pain Ondansetron [Zofran ODT] 4 mg PO Q4H PRN #5 tab.dis PRN Reason: Nausea Instructions: Chronic Migraine Headache Referrals: Mart Ceron DO [Primary Care Provider] - Forms: ED Department Discharge Additional Instructions: Please read discharge instructions on migraine headache Zofran ODT 4 mg every 4 hours as needed for nausea Toradol 10 mg with tylenol 1000 mg every 8 hours as needed for headache. Follow up as scheduled. Sepsis Event Note (ED) - Evaluation Sepsis Screening Result: No Definite Risk - Focused Exam Vital Signs: Vital Signs Temp Pulse Resp BP Pulse Ox 09/03/21 22:24 35.7 C L 97 16 141/73 H 96 - My Orders Last 24 Hours: My Active Orders 09/03/21 22:44 Sodium Chloride 0.9% [Saline Flush] 10 ml FLUSH ASDIRECTED PRN Saline Lock Insert [OM.PC] Routine 09/03/21 22:45 Sodium Chloride 0.9% [Normal Saline] 1,000 ml IV ASDIRECTED 09/03/21 23:20 Acetaminophen/HYDROcodone [[place] 325-5 MG] 2 tab PO NOW STA - Assessment/Plan Last 24 Hours: My Active Orders 09/03/21 22:44 Sodium Chloride 0.9% [Saline Flush] 10 ml FLUSH ASDIRECTED PRN Saline Lock Insert [OM.PC] Routine 09/03/21 22:45 Sodium Chloride 0.9% [Normal Saline] 1,000 ml IV ASDIRECTED 09/03/21 23:20 Acetaminophen/HYDROcodone [[place] 325-5 MG] 2 tab PO NOW STA
[2021-09-03] MEDS ORDERED: Sodium Chloride 0.9% 1,000 ML IV SCH (22:45)
[2021-09-03] MEDS ORDERED: Acetaminophen/HYDROcodone 325-5 MG Tab PO STA (23:20)
== END 2021-09-04 00:09 | disposition home or self-care (01) ==
LOC: FB.ED 22:16
DX: G43.909 Migraine, unspecified, not intractable, without status migrainosus (principal); I10 Essential (primary) hypertension; E78.00 Pure hypercholesterolemia, unspecified; F17.200 Nicotine dependence, unspecified, uncomplicated; Z79.899 Other long term (current) drug therapy
CPT/HCPCS: 36415; 80048; 85025; 96374; 96375; 99283; A9270; J1885; J2405; J7030

== ENCOUNTER 2021-09-20 21:43 | Emergency (ER) | payer MEDICAID ==
--- NOTE | 2021-09-20 21:58 | EDM.PDOC ---
ED HPI GENERAL MEDICAL PROBLEM - General Stated Complaint: LOWER BACK Time Seen by Provider: 09/20/21 21:45 Source of Information: Reports: Patient - History of Present Illness INITIAL COMMENTS - FREE TEXT/NARRATIVE: 41-year-old lady with a history of lower lumbar surgery, L5-S1 microdiscectomy on 29 July 2021 came to the emergency room [facility] for evaluation of a lump at the superior aspect of the surgical scar. Her history with the surgery is somewhat complicated. After her initial surgery she had a surgical wound infection and had to return to the hospital and was found to have cerebral spinal fluid leaking. Following that treatment she had another leak of cerebrospinal fluid, this time it was not infected, but it was a significant leak that caused her to have severe headache. She had accumulation of fluid for the size of about a golf ball she states earlier today. She states that the size of the lump has decreased and she does not have any fever, chills, headache. She also denies all other symptoms including flulike symptoms, chest pain, shortness of breath. She called nurse line and was instructed to come to the emergency department for evaluation. - Related Data Allergies Allergy/AdvReac Type Severity Reaction Status Date / Time No Known Allergies Allergy Verified 05/13/21 06:01 Home Meds: Home Meds Amitriptyline [Elavil] 10 mg PO BEDTIME 04/09/21 [History] Ibuprofen 800 mg PO Q8H PRN #30 tablet 04/09/21 [Rx] Meloxicam 7.5 mg PO BID 04/09/21 [History] atorvaSTATin Calcium [Lipitor] 20 mg PO BEDTIME 04/09/21 [History] lisinopriL [Lisinopril] 10 mg PO DAILY 04/09/21 [History] Ketorolac [Toradol] 10 mg PO Q8H PRN #15 tab 09/03/21 [Rx] Ondansetron [Zofran ODT] 4 mg PO Q4H PRN #5 tab.dis 09/03/21 [Rx] Past Medical History HEENT History: Reports: None Cardiovascular History: Reports: High Cholesterol, Hypertension Respiratory History: Reports: Bronchitis, Recurrent, Other (See Below) Other Respiratory History: acute bronchitis, is a smoker Genitourinary History: Reports: None 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: , Other (See Below) Other INTEGRATION AIDE History: tubal ligation-2003, Musculoskeletal History: Reports: Back Pain, Chronic, Fracture, Other (See Below) Other Musculoskeletal History: Degenerative Disc Disease, fx L thumb-2013, Neurological History: Reports: Concussion, Migraines Psychiatric History: Reports: Anxiety, Bipolar, Depression, PTSD, Other (See Below) Other Psychiatric History: borderline personality disorder - Infectious Disease History Infectious Disease History: Reports: Chicken Pox - Past Surgical History HEENT Surgical History: Reports: Oral Surgery, Tonsillectomy Female Surgical History: Reports: Tubal Ligation Musculoskeletal Surgical History: Reports: None Social & Family History - Family History Family Medical History: No Pertinent Family History - Caffeine Use Caffeine Use: Reports: Coffee, Energy Drinks Caffeine Use Comment: 1 cup/day - Sexual History Other Sexual History Comment: Not really sexually active. Last sexual intercourse was 2 months ago. 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) ED ROS GENERAL - Review of Systems Review Of Systems: See Below Constitutional: Reports: No Symptoms HEENT: Reports: No Symptoms Respiratory: Reports: No Symptoms Cardiovascular: Reports: No Symptoms Endocrine: Reports: No Symptoms GI/Abdominal: Reports: No Symptoms : Reports: No Symptoms Musculoskeletal: Reports: No Symptoms Skin: Reports: No Symptoms Neurological: Reports: No Symptoms Psychiatric: Reports: No Symptoms Hematologic/Lymphatic: Reports: No Symptoms Immunologic: Reports: No Symptoms ED EXAM, GENERAL - Physical Exam Exam: See Below Exam Limited By: No Limitations General Appearance: Alert, WD/WN, No Apparent Distress Eye Exam: Bilateral Eye: EOMI Head: Atraumatic, Normocephalic Neck: Normal Inspection Respiratory/Chest: No Respiratory Distress, Lungs Clear Cardiovascular: Tachycardia Peripheral Pulses: 2+: Radial (L), Radial (R) GI/Abdominal: Normal Bowel Sounds, Soft, Non-Tender Extremities: Normal Inspection Neurological: Alert, Oriented, CN II-XII Intact, Normal Cognition Skin Exam: Other (Surgical scar over distal lumbar spine closed with luis manuel, very mild erythema, no edema. There is a small fluid collection at the superior aspect of the incision, no leakage) Course - Vital Signs Text/Narrative:: I spoke with Dr. Santana via [address] Santana is a neurosurgeon salon assistant with . Dr. Santana advised the patient to go to the neurosurgery outpatient office first thing Thursday for evaluation. I advised the patient to go to the emergency department in [facility] immediately if she has any fever, chills, headache, drainage from her surgical site. Departure - Departure Time of Disposition: 22:14 Disposition: Home, Self-Care 01 Condition: Good Clinical Impression: Postoperative cerebrospinal fluid leak - Discharge Information *PRESCRIPTION DRUG MONITORING PROGRAM REVIEWED*: Not Applicable *COPY OF PRESCRIPTION DRUG MONITORING REPORT IN PATIENT GREGORY: Not Applicable Instructions: Cerebrospinal Fluid Leak, Adult Referrals: Mart Ceron, [Primary Care Provider] - Additional Instructions: Patient advised to go to the emergency department at [facility] immediately if she has fever, chills, headache, leakage from her surgical site. Patient advised to follow-up with her neurosurgeon first thing Thursday for evaluation in his office.
== END 2021-09-20 22:20 | disposition home or self-care (01) ==
LOC: FB.ED 21:43
DX: G97.0 Cerebrospinal fluid leak from spinal puncture (principal); E78.00 Pure hypercholesterolemia, unspecified; I10 Essential (primary) hypertension; Z79.899 Other long term (current) drug therapy; Z87.891 Personal history of nicotine dependence
CPT/HCPCS: 99283

== ENCOUNTER 2025-10-11 22:28 | Emergency (ER) | payer MEDICAID ==
[2025-10-11] MEDS: Ketorolac 30 MG/ML SDV IM STA (23:02)
== END 2025-10-12 00:54 | disposition home or self-care (01) ==
LOC: FB.ED 22:28
DX: M51.360 Other intervertebral disc degeneration, lumbar region with discogenic back pain only (principal); I10 Essential (primary) hypertension; E78.00 Pure hypercholesterolemia, unspecified; F17.210 Nicotine dependence, cigarettes, uncomplicated; Z79.899 Other long term (current) drug therapy
CPT/HCPCS: 72100; 96372; 99283; A9270; J1885; 99284